=== PATIENT | female | born 1975 | race Hispanic/Latino ===

== ENCOUNTER 2019-12-18 20:34 | Emergency (ER) | payer SELFPAY ==
[2019-12-18 23:55] LABS: Basophils # (Auto) 0.1 K/mm3 (0.0-0.1); Basophils % (Auto) 0.7 % (0.0-1.8); Eosinophils # (Auto) 0.1 K/mm3 (0.0-0.4); Eosinophils % (Auto) 0.4 % (0.0-4.3); Hematocrit 46.4 % (30.3-42.9); Hemoglobin 15.4 gm/dl (10.1-14.3); Lymphocytes # (Auto) 2.3 K/mm3 (1.2-5.4); Lymphocytes % (Auto) 16.1 % (13.4-35.0); Mean Corpuscular HGB Conc 33 % (30-34); Mean Corpuscular Volume 86 fl (79-97); Monocytes # (Auto) 0.7 K/mm3 (0.0-0.8); Monocytes % (Auto) 5.1 % (0.0-7.3); Platelet Count 317 K/mm3 (140-440); Red Cell Distribution Width 13.9 % (13.2-15.2)
--- NOTE | 2019-12-19 01:04 | Emergency Department Report ---
Chief Complaint: Extremity Problem,Nontraumatic Stated Complaint: CHEST/PELVIC PAIN Time Seen by Provider: 12/19/19 00:54 - HPI History of Present Illness: 44-year-old female presents to the emergency room complaining of chest pain when she calls a pelvic pain. Patient states that she was seen at [place] a few days ago was told that she has urinary incontinence fibroids and cysts on her ovary area patient states that she was given a prescription of tramadol and gabapentin and naproxen states that she knows medicine is not going to work and she cannot afford the medication. Patient reports that she had missed her appointment for outpatient [facility] that was scheduled on the . Patient states that she is using her incontinence pads to help with her urinary incontinence. She has taken nothing for her pelvic pain even though she was given a prescription for gabapentin, tramadol and naproxen. - Exam Vital Signs: Vital Signs 12/18/19 20:41 Temperature 98.4 F Pulse Rate 88 Respiratory 15 Rate Blood Pressure 133/53 O2 Sat by Pulse 96 Oximetry Physical Exam: Alert and oriented 3 no acute distress ambulating without difficulty MSE screening note: Focused history and physical exam performed. Due to findings the following was ordered: 44-year-old female presents to the emergency room complaining of chest pain when she calls a pelvic pain. Patient states that she was seen at [place] a few days ago was told that she has urinary incontinence fibroids and cysts on her ovary area patient states that she was given a prescription of tramadol and gabapentin and naproxen states that she knows medicine is not going to work and she cannot afford the medication. Patient reports that she had missed her appointment for outpatient [facility] that was scheduled on the . Patient states that she is using her incontinence pads to help with her urinary incontinence. She has taken nothing for her pelvic pain even though she was given a prescription for gabapentin, tramadol and naproxen. ED Medical Decision Making - Lab Data Result diagrams: 12/18/19 23:32 ED Disposition for MSE Clinical Impression: Cough Urinary incontinence Qualifiers: Urinary Incontinence type: unspecified incontinence Qualified Code(s): R32 - Unspecified urinary incontinence Fibroid, uterine Qualifiers: Uterine leiomyoma location: unspecified location Qualified Code(s): D25.9 - L eiomyoma of uterus, unspecified Disposition: DC-01 TO HOME OR SELFCARE Is pt being admited?: No Does the pt Need Aspirin: No Condition: Stable Instructions: Urinary Incontinence (ED) Additional Instructions: Please fill your prescription that was given to us from [facility]. It's very important to follow-up with the urologist and [facility]. I have listed several names below for your convenience. Over the counter cough medication. Referrals: PRIMARY CARE, [Primary Care Provider] - 3-5 Days ELISABET AGUAYO MD [Staff Physician] - 3-5 Days ANA CULVER MD [Staff Physician] - 3-5 Days
[2019-12-19 04:31] VITALS: BP 140/64
== END 2019-12-19 02:30 | disposition home or self-care (01) ==
LOC: ED 20:34
DX: D25.9 Leiomyoma of uterus, unspecified (principal); R05 Cough; R32 Unspecified urinary incontinence; R07.9 Chest pain, unspecified; Z88.0 Allergy status to penicillin
CPT/HCPCS: 36415; 85025; 86900; 86901